=== PATIENT | male | born 1980 | race African-American/Black ===

== ENCOUNTER 2017-12-09 12:16 | Inpatient (IN) | payer OTHER ==
[2017-12-09 15:26] VITALS: BMI 25.7
--- NOTE | 2017-12-09 17:12 | HP ---
CIWA Score - CIWA Score Nausea/Vomitin-Int. Nausea w/Dry Heave Muscle Tremors: 4-Moderate,w/Arms Extend Anxiety: 1-Mildly Anxious Agitation: 1-Slight > Activity Paroxysmal Sweats: 1-Minimal Palms Moist Orientation: 0-Oriented Tacttile Disturbances: 0-None Auditory Disturbances: 0-None Visual Disturbances: 0-None Headache: 2-Mild CIWA-Ar Total Score: 13 Admission ROS BHS - HPI Chief Complaint: Here for alcohol withdrawal. Allergies/Adverse Reactions: Allergies Allergy/AdvReac Type Severity Reaction Status Date / Time No Known Drug Allergies Allergy Verified 12/09/17 18:20 dust Allergy Intermediate Uncoded 12/09/17 17:35 History of Present Illness: States has been drinking since age Seen in [facility] 11/14 for depression. Denies thoughts of harming self or others. Denies hx seizures or blackouts. Denies any significant length of sobriety. Denies current medications. Exam Limitations: No Limitations - Ebola screening Have you traveled outside of the country in the last 21 days: No Have you had contact with anyone from an Ebola affected area: No Have you been sick,other than usual withdrawal symptoms: No Do you have a fever: No - Review of Systems Constitutional: Chills EENT: reports: No Symptoms Reported Respiratory: reports: No Symptoms reported Cardiac: reports: No Symptoms Reported GI: reports: Vomiting (Denies abd pain) : reports: No Symptoms Reported Musculoskeletal: reports: No Symptoms Reported Integumentary: reports: No Symptoms Reported Neuro: reports: Headache, Tremors Endocrine: reports: No Symptoms Reported Hematology: reports: No Symptoms Reported Psychiatric: reports: Judgement Intact, Orientated x3, Depressed (Denies thoughts of harming self or others) Patient History - Patient Medical History Hx Anemia: No Hx Asthma: No Hx Chronic Obstructive Pulmonary Disease (COPD): No Hx Cancer: No Hx Cardiac Disorders: No Hx Congestive Heart Failure: No Hx Hypertension: No Hx Hypercholesterolemia: No Hx Pacemaker: No HX Cerebrovascular Accident: No Hx Seizures: No Hx Dementia: No Hx Diabetes: No Hx Gastrointestinal Disorders: No Hx Liver Disease: No Hx Genitourinary Disorders: No Hx Sexually Transmitted Disorders: No Hx Renal Disease (ESRD): No Hx Thyroid Disease: No Hx Human Immunodeficiency Virus (HIV): No (2017) Hx Hepatitis C: No Hx Depression: Yes Hx Suicide Attempt: Yes - Patient Surgical History Past Surgical History: No - PPD History Previous Implant?: Yes Documented Results: Negative w/o proof Implanted On Prior R Admission?: No PPD to be Administered?: Yes - Smoking Cessation Smoking history: Current every day smoker Have you smoked in the past 12 months: Yes Aproximately how many cigarettes per day: 20 Hx Chewing Tobacco Use: No Initiated information on smoking cessation: Yes 'Breaking Loose' booklet given: 12/09/17 - Substance & Tx. History Hx Alcohol Use: Yes Hx Substance Use: Yes Substance Use Type: Alcohol, Marijuana - Substances Abused Alcohol Age of first use: 21 Marijuana/Hashish Age of first use: 21 Admission Physical Exam BHS - Vital Signs Vital Signs: Vital Signs - 24 hr 12/09/17 15:22 Temperature 96.2 F L Pulse Rate 95 H Respiratory 20 Rate Blood Pressure 135/81 - Physical General Appearance: Yes: Mild Distress, Tremorous, Sweating, Anxious HEENTM: Yes: EOMI, Hearing grossly Normal, Normal Voice, SHABNAM Respiratory: Yes: Chest Non-Tender, Lungs Clear, Normal Breath Sounds, No Respiratory Distress Neck: Yes: No masses,lesions,Nodules, Supple Breast: Yes: Breast Exam Deferred Cardiology: Yes: Regular Rhythm, Regular Rate, S1, S2, Murmur (No SOB/Edema) Abdominal: Yes: Non Tender, Flat, Soft, Increased Bowel Sounds Genitourinary: Yes: Within Normal Limits Back: Yes: Normal Inspection Musculoskeletal: Yes: full range of Motion Extremities: Yes: Normal Capillary Refill, Normal Range of Motion, Tremors (Of hand ast rest and increases upon arm elevation) Neurological: Yes: project developer II-XII NML intact, Fully Oriented, Alert, Motor Strength 5/5, Normal Mood/Affect Integumentary: Yes: Normal Color, Dry, Warm, Other (multiple scattered elevated lesions w/ black spots on chest and back. Without erythema or pustules. Non- tender.) Lymphatic: Yes: Within Normal Limits - Diagnostic (1) Alcohol dependence with uncomplicated withdrawal Status: Acute (2) Murmur, cardiac Status: Chronic (3) Blackhead Status: Chronic (4) Cannabis dependence, uncomplicated Status: Chronic (5) Nicotine dependence Status: Acute Qualifiers: Nicotine product type: cigarettes Substance use status: uncomplicated Qualified Code(s): F17.210 - Nicotine dependence, cigarettes, uncomplicated Cleared for Admission [facility] - Detox or Rehab [facility] Level of Care: Medically Managed Detox Regimen/Protocol: Librium [facility] Breath Alcohol Content Breath Alcohol Content: 0 Urine Drug Screen - Results Drug Screen Negative: No Urine Drug Screen Results: THC-Marijuana, BZO-Benzodiazepines
[2017-12-09] MEDS ORDERED: IBUPROFEN 400 MG TABLET (FP) PO PRN (17:36)
[2017-12-09] MEDS ORDERED: MAGNESIUM HYDROX 2400MG/30ML ORAL SUSPENSION 30 ML CUP PO PRN (17:36)
[2017-12-09] MEDS ORDERED: MENTHOL/PHENOL 1 EACH UD MM PRN (17:36)
[2017-12-09] MEDS ORDERED: P-EPHED 60MG/TRIPROLIDI 2.5MG TABLET PO PRN (17:36)
[2017-12-09] MEDS ORDERED: MAGNESIUM CITRATE 300 ML BOTTLE PO PRN (17:36)
[2017-12-09] MEDS ORDERED: guaiFENesin/D-METHORPHAN HB 10 ML UNIT-DOSE CUPS PO PRN (17:36)
[2017-12-09] MEDS ORDERED: chlordiazePOXIDE HCL 25 MG CAPSULE PO ONE (17:36)
[2017-12-09] MEDS ORDERED: chlordiazePOXIDE HCL 25 MG CAPSULE PO PRN (17:36)
[2017-12-09] MEDS ORDERED: MAG HYDROX/AL HYDROX/SIMETH 30 ML UNIT-DOSE CUP PO PRN (17:36)
[2017-12-09] MEDS ORDERED: LOPERAMIDE HCL 2 MG CAPSULE PO PRN (17:36)
[2017-12-09] MEDS ORDERED: ACETAMINOPHEN 325 MG TABLET (FP) PO PRN (17:36)
[2017-12-09] MEDS ORDERED: NICOTINE POLACRILEX 2 MG GUM BC PRN (17:36)
[2017-12-09] MEDS: THIAMINE HCL 100 MG TABLET (FP) PO SCH (22:14)
[2017-12-09] MEDS: chlordiazePOXIDE HCL 25 MG CAPSULE PO SCH (22:14)
[2017-12-09] MEDS: MELATONIN 5 MG TABLETS PO PRN (22:14)
[2017-12-10] MEDS: chlordiazePOXIDE HCL 25 MG CAPSULE PO SCH ×4 (05:33→22:31)
[2017-12-10 10:25] LABS: HEMATOCRIT 42.5 % (35.4-49); HEMOGLOBIN 13.6 GM/dL (11.7-16.9); MCH 27.8 pg (25.7-33.7); MEAN CELL VOLUME 87.1 fl (80-96); MEAN PLT VOLUME 8.7 fl (7.5-11.1); PLATELET COUNT 312 K/MM3 (134-434); RBC 4.88 M/mm3 (4.00-5.60); RDW 14.4 % (11.9-15.9); WHITE BLOOD COUNT 7.2 K/mm3 (4.0-10.0)
[2017-12-10] MEDS: PRENATAL VITAMINS W/ FOLIC ACID TABLET (FP) PO SCH (10:27)
[2017-12-10] MEDS: NICOTINE 21 MG/24 HOURS TOPICAL PATCH TD SCH (10:28)
[2017-12-10 10:45] LABS: ALBUMIN 3.6 g/dl (3.4-5.0); ALK PHOS 58 U/L (45-117); ANION GAP 9 MMOL/L (8-16); BILIRUBIN,TOTAL 0.4 mg/dL (0.2-1); BLOOD UREA NITROGEN 15 mg/dL (7-18); CHLORIDE 106 mmol/L (98-107); CO2 29 mmol/L (21-32); CREATININE 0.9 mg/dL (0.55-1.3); GLUCOSE,RANDOM 78 mg/dL (74-106); POTASSIUM 4.2 mmol/L (3.5-5.1); SGOT/AST 28 U/L (15-37); SGPT/ALT 73 U/L (13-61); SODIUM 144 mmol/L (136-145); TOT PROT 6.2 g/dl (6.4-8.2)
--- NOTE | 2017-12-10 11:44 | CONSULT ---
[facility] Psychiatric Consult - Data Date of interview: 12/10/17 Admission source: [facility] Identifying data: Patient is a 37 year old single male, father of one, unemployed, homeless, and is supported by [facility]. This is patient's first admission to detox at [facility]. Patient admitted to for alcohol dependence. Substance Abuse History: Smoking Cessation. Smoking history: Current every day smoker. Have you smoked in the past 12 months: Yes. Aproximately how many cigarettes per day: 20. Hx Chewing Tobacco Use: No. Initiated information on smoking cessation: Yes. 'Breaking Loose' booklet given: 12/09/17. - Substance & Tx. History. Hx Alcohol Use: Yes. Hx Substance Use: Yes. Substance Use Type : Alcohol, Marijuana Medical History: denies. Psychiatric History: Patient is a poor historian. He is unable to provide a clear psychiatric history. He reports two psychiatric hospitalizations at [facility] in 2018. He denies outpatient psychiatric care. He is unsure of the medications he is prescribed and is unable to tell rfp writer when he last accepted medications. Director [facility] able to review pharmacy claims with patient and discuss his most recent prescriptions of risperdal, cogentin, and trazodone but patient contines to provide a poor psychiatric history. He did report h/o auditory and visual hallucinations but denies psychotic sympyoms at the moment. Patient appears to be mildly internally preoccupied. Patient agreeable to accepting psychotrophic medications. Physical/Sexual Abuse/Trauma History: denies. Mental Status Exam - Mental Status Exam Alert and Oriented to: Time, Place, Person Cognitive Function: Fair Patient Appearance: Unkempt Mood: Withdrawn, Euthymic Affect: Flat Patient Behavior: Guarded, Cooperative Speech Pattern: Delayed Voice Loudness: Moderately Soft/Quiet Thought Process: Thought Blocking Thought Disorder: Not Present Hallucinations: Denies Suicidal Ideation: Denies Homicidal Ideation: Denies Insight/Judgement: Poor Sleep: Poorly Appetite: Fair Muscle strength/Tone: Normal Gait/Station: Normal Psychiatric Findings - Problem List (Boomer 1, 2,3) (1) Schizophrenia Current Visit: Yes Status: Suspected (2) Alcohol dependence with uncomplicated withdrawal Current Visit: Yes Status: Acute (3) Cannabis dependence, uncomplicated Current Visit: Yes Status: Acute (4) Substance induced mood disorder Current Visit: Yes Status: Acute - Initial Treatment Plan Initial Treatment Plan: Psychoeducation provided. Detoxification in progress. Pharmacy claims reviewed and noted electronic prescriptions for risperdal 2mg BID (12/08/17) Trazodone 100mg ( 12/05/17) and Congentin 1mg BID (12/05/17) Will order risperdal 1mg BID + cogentin 0.5mg + Trazodone 100mg qhs. Benefits and side effects discussed. Verbal consent given.
[2017-12-10 12:59] LABS: URINE APPEARANCE CLOUDY; URINE BILIRUBIN NEGATIVE (<2.0 mg/dL); URINE COLOR YELLOW; URINE GLUCOSE (UA) NEGATIVE (NEGATIVE); URINE KETONE NEGATIVE (NEGATIVE); URINE LEUK ESTERASE NEGATIVE (NEGATIVE); URINE NITRITE NEGATIVE (NEGATIVE); URINE PROTEIN 1+ (NEGATIVE); URINE UROBILINOGEN NEGATIVE mg/dL (0.2-1.0)
[2017-12-10 13:16] LABS: EPI CELLS RARE /HPF (FEW); URINE BACTERIA MANY /hpf (NONE SEEN); YEAST FEW
[2017-12-10] MEDS: risperiDONE 1 MG TABLET (FP) PO SCH ×2 (13:24→22:31)
[2017-12-10] MEDS: BENZTROPINE MESYLATE 1 MG TABLET (FP) PO SCH ×2 (13:25→22:31)
--- NOTE | 2017-12-10 14:46 | EKG ---
Test Reason : Blood Pressure : / mmHG Vent. Rate : 075 BPM Atrial Rate : 075 BPM P-R Int : 158 ms QRS Dur : 090 ms QT Int : 400 ms P-R-T Axes : 056 070 054 degrees QTc Int : 446 ms NORMAL SINUS RHYTHM NORMAL ECG NO PREVIOUS ECGS AVAILABLE Confirmed by MD Maritza, Bautista ([id number]) on 12/10/2017 2:46:13 PM Referred By: Confirmed By:Bautista Salas MD
--- NOTE | 2017-12-10 15:44 | PN ---
[facility] CIWA - CIWA Score Nausea/Vomitin Muscle Tremors: 2 Anxiety: 3 Agitation: 3 Paroxysmal Sweats: 2 Orientation: 0-Oriented Tacttile Disturbances: 0-None Auditory Disturbances: 0-None Visual Disturbances: 0-None Headache: 0-None Present CIWA-Ar Total Score: 12 S Progress Note (SOAP) Subjective: c/o nausea, diarrhea, anxious, interrupted sleep Objective: 12/10/17 15:45 Vital Signs Temperature 96.3 F L 12/10/17 13:58 Pulse Rate 88 12/10/17 13:58 Respiratory Rate 18 12/10/17 13:58 Blood Pressure 112/76 12/10/17 13:58 O2 Sat by Pulse Oximetry (%) Laboratory Last Values WBC 7.2 K/mm3 (4.0-10.0) 12/10/17 08:00 RBC 4.88 M/mm3 (4.00-5.60) 12/10/17 08:00 Hgb 13.6 GM/dL (11.7-16.9) 12/10/17 08:00 Hct 42.5 % (35.4-49) 12/10/17 08:00 MCV 87.1 fl (80-96) 12/10/17 08:00 MCH 27.8 pg (25.7-33.7) 12/10/17 08:00 MCHC 32.0 g/dl (32.0-35.9) 12/10/17 08:00 RDW 14.4 % (11.9-15.9) 12/10/17 08:00 Plt Count 312 K/MM3 (134-434) 12/10/17 08:00 MPV 8.7 fl (7.5-11.1) 12/10/17 08:00 Sodium 144 mmol/L (136-145) 12/10/17 08:00 Potassium 4.2 mmol/L (3.5-5.1) 12/10/17 08:00 Chloride 106 mmol/L (98-107) 12/10/17 08:00 Carbon Dioxide 29 mmol/L (21-32) 12/10/17 08:00 Anion Gap 9 MMOL/L (8-16) 12/10/17 08:00 BUN 15 mg/dL (7-18) 12/10/17 08:00 Creatinine 0.9 mg/dL (0.55-1.3) 12/10/17 08:00 Creat Clearance w eGFR > 60 (>60) 12/10/17 08:00 Random Glucose 78 mg/dL (74-106) 12/10/17 08:00 Calcium 9.0 mg/dL (8.5-10.1) 12/10/17 08:00 Total Bilirubin 0.4 mg/dL (0.2-1) 12/10/17 08:00 AST 28 U/L (15-37) 12/10/17 08:00 ALT 73 U/L (13-61) H 12/10/17 08:00 Alkaline Phosphatase 58 U/L (45-117) 12/10/17 08:00 Total Protein 6.2 g/dl (6.4-8.2) L 12/10/17 08:00 Albumin 3.6 g/dl (3.4-5.0) 12/10/17 08:00 Urine Color Yellow 12/10/17 09:30 Urine Appearance Cloudy 12/10/17 09:30 Urine pH 8.0 (5.0-8.0) 12/10/17 09:30 Ur Specific [place] 1.024 (1.010-1.035) 12/10/17 09:30 Urine Protein 1+ (NEGATIVE) H 12/10/17 09:30 Urine Glucose (UA) Negative (NEGATIVE) 12/10/17 09:30 Urine Ketones Negative (NEGATIVE) 12/10/17 09:30 Urine Blood Negative (NEGATIVE) 12/10/17 09:30 Urine Nitrite Negative (NEGATIVE) 12/10/17 09:30 Urine Bilirubin Negative (<2.0 mg/dL) 12/10/17 09:30 Urine Urobilinogen Negative mg/dL (0.2-1.0) 12/10/17 09:30 Ur Leukocyte Esterase Negative (NEGATIVE) 12/10/17 09:30 Urine WBC (Auto) 10 /hpf (3-5) 12/10/17 09:30 Urine RBC (Auto) <1 /hpf (0-3) 12/10/17 09:30 Ur Epithelial Cells Rare /HPF (FEW) 12/10/17 09:30 Urine Bacteria Many /hpf (NONE SEEN) 12/10/17 09:30 Urine Yeast Few 12/10/17 09:30 RPR Titer Nonreactive (NONREACTIVE) 12/10/17 08:00 HIV 1&2 Antibody Screen Negative 12/10/17 08:00 HIV P24 Antigen Negative 12/10/17 08:00 Aox3 no distress, anxious full ROM ambulating in the unit Assessment: 12/10/17 15:46 withdrawal sx Plan: increase PO fluids continue detox continue to monitor
[2017-12-10] MEDS: THIAMINE HCL 100 MG TABLET (FP) PO SCH (22:31)
[2017-12-10] MEDS: traZODone HCL 100 MG TABLET (FP) PO SCH (22:31)
[2017-12-11] MEDS: MELATONIN 5 MG TABLETS PO PRN ×2 (00:38→22:41)
[2017-12-11] MEDS: chlordiazePOXIDE HCL 25 MG CAPSULE PO SCH ×3 (05:49→17:42)
[2017-12-11] MEDS: BENZTROPINE MESYLATE 1 MG TABLET (FP) PO SCH ×2 (10:27→22:28)
[2017-12-11] MEDS: risperiDONE 1 MG TABLET (FP) PO SCH ×2 (10:27→22:28)
[2017-12-11] MEDS: NICOTINE 21 MG/24 HOURS TOPICAL PATCH TD SCH (10:27)
[2017-12-11] MEDS: PRENATAL VITAMINS W/ FOLIC ACID TABLET (FP) PO SCH (10:27)
[2017-12-11] MEDS ORDERED: FLUCONAZOLE 50 MG TABLET PO ONE (15:08)
--- NOTE | 2017-12-11 15:08 | PN ---
[facility] CIWA - CIWA Score Nausea/Vomitin-Mild Nausea/No Vomiting Muscle Tremors: 3 Anxiety: 3 Agitation: 3 Paroxysmal Sweats: 3 Orientation: 0-Oriented Tacttile Disturbances: 0-None Auditory Disturbances: 0-None Visual Disturbances: 0-None Headache: 1-Very Mild CIWA-Ar Total Score: 14 [facility] Progress Note (SOAP) Subjective: Sweating, interrupted sleep, anxious Objective: 12/11/17 15:04 Last Vital Signs Temp Pulse Resp BP Pulse Ox 97.5 F L 117 H 19 116/79 12/11/17 14:09 12/11/17 14:09 12/11/17 14:09 12/11/17 14:09 Laboratory Tests 12/10/17 12/10/17 12/10/17 08:00 08:00 08:00 WBC 7.2 RBC 4.88 Hgb 13.6 Hct 42.5 MCV 87.1 MCH 27.8 MCHC 32.0 RDW 14.4 Plt Count 312 MPV 8.7 Sodium 144 Potassium 4.2 Chloride 106 Carbon Dioxide 29 Anion Gap 9 BUN 15 Creatinine 0.9 Creat Clearance w eGFR > 60 Random Glucose 78 Calcium 9.0 Total Bilirubin 0.4 AST 28 ALT 73 H Alkaline Phosphatase 58 Total Protein 6.2 L Albumin 3.6 Urine Color Urine Appearance Urine pH Ur Specific [place] Urine Protein Urine Glucose (UA) Urine Ketones Urine Blood Urine Nitrite Urine Bilirubin Urine Urobilinogen Ur Leukocyte Esterase Urine WBC (Auto) Urine RBC (Auto) Ur Epithelial Cells Urine Bacteria Urine Yeast RPR Titer Nonreactive HIV 1&2 Antibody Screen HIV P24 Antigen 12/10/17 12/10/17 08:00 09:30 WBC RBC Hgb Hct MCV MCH MCHC RDW Plt Count MPV Sodium Potassium Chloride Carbon Dioxide Anion Gap BUN Creatinine Creat Clearance w eGFR Random Glucose Calcium Total Bilirubin AST ALT Alkaline Phosphatase Total Protein Albumin Urine Color Yellow Urine Appearance Cloudy Urine pH 8.0 Ur Specific [place] 1.024 Urine Protein 1+ H Urine Glucose (UA) Negative Urine Ketones Negative Urine Blood Negative Urine Nitrite Negative Urine Bilirubin Negative Urine Urobilinogen Negative Ur Leukocyte Esterase Negative Urine WBC (Auto) 10 Urine RBC (Auto) <1 Ur Epithelial Cells Rare Urine Bacteria Many Urine Yeast Few RPR Titer HIV 1&2 Antibody Screen Negative HIV P24 Antigen Negative Labs reviewed: abnormal UA and yeast Assessment: 12/11/17 15:06 Withdrawal symptoms Noted with abnormal UA and yeast Plan: Continue detox Abnormal UA/Yeast: encouraged PO water intake, diflucan 150mg PO x 1 dose, repeat UA
[2017-12-11] MEDS ORDERED: FLUCONAZOLE 150 MG TABLET PO ONE (16:30)
[2017-12-11] MEDS: THIAMINE HCL 100 MG TABLET (FP) PO SCH (22:28)
[2017-12-11] MEDS: chlordiazePOXIDE 5 MG CAPSULE PO SCH (22:28)
[2017-12-11] MEDS: traZODone HCL 100 MG TABLET (FP) PO SCH (22:28)
[2017-12-12] MEDS: chlordiazePOXIDE 5 MG CAPSULE PO SCH ×2 (05:43→10:44)
[2017-12-12 06:15] VITALS: PULSE 77
[2017-12-12 09:20] VITALS: BP 118/67; TEMP 97.2
[2017-12-12] MEDS: PRENATAL VITAMINS W/ FOLIC ACID TABLET (FP) PO SCH (10:44)
[2017-12-12] MEDS: BENZTROPINE MESYLATE 1 MG TABLET (FP) PO SCH (10:44)
[2017-12-12] MEDS: risperiDONE 1 MG TABLET (FP) PO SCH (10:44)
[2017-12-12] MEDS: NICOTINE 21 MG/24 HOURS TOPICAL PATCH TD SCH (10:45)
--- NOTE | 2017-12-12 12:31 | PN ---
BHS Progress Note (SOAP) Subjective: Offers no complaints Objective: 12/12/17 14:16 Sleeping, breathing unlabored Not wanting to talk with provider Vital Signs Temperature 97.2 F L 12/12/17 09:19 Pulse Rate 77 12/12/17 09:19 Respiratory Rate 18 12/12/17 09:19 Blood Pressure 118/67 12/12/17 09:19 O2 Sat by Pulse Oximetry (%) Assessment: 12/12/17 14:17 Continue detox
--- NOTE | 2017-12-12 14:21 | DS ---
[facility] Detox Discharge Summary Admission Date: 12/09/17 Discharge Date: 12/12/17 - History Additional Comments: Requesting to leave after a.m rounds, offers no excuse Not receptive to education to stay to complete detox. Not in acute distress pt will leave AMA - Physical Exam Results Vital Signs: Vital Signs Temperature 97.2 F L 12/12/17 09:19 Pulse Rate 77 12/12/17 09:19 Respiratory Rate 18 12/12/17 09:19 Blood Pressure 118/67 12/12/17 09:19 O2 Sat by Pulse Oximetry (%) Pertinent Admission Physical Exam Findings: withdrawal sx - Medication Discharge Medications: Ambulatory Orders Benztropine Mesylate [Cogentin -] 0.5 mg PO BID 12/10/17 Risperidone [Risperdal] 1 mg PO BID 12/10/17 traZODone HCL [Trazodone HCl] 100 mg PO HS 12/10/17 - Diagnosis (1) Abnormal finding on urinalysis Status: Acute (2) Alcohol dependence with uncomplicated withdrawal Status: Acute (3) Cannabis dependence, uncomplicated Status: Acute (4) Murmur, cardiac Status: Acute (5) Substance induced mood disorder Status: Acute (6) Cocaine dependence Status: Chronic (7) Depression Status: Chronic (8) Nicotine dependence Status: Chronic - AMA Did Patient Leave Against Medical Advice: Yes
[2017-12-12 14:33] LABS: URINE APPEARANCE CLEAR; URINE BILIRUBIN NEGATIVE (<2.0 mg/dL); URINE COLOR LTYELLOW; URINE GLUCOSE (UA) NEGATIVE (NEGATIVE); URINE KETONE NEGATIVE (NEGATIVE); URINE LEUK ESTERASE TRACE (NEGATIVE); URINE NITRITE NEGATIVE (NEGATIVE); URINE PROTEIN NEGATIVE (NEGATIVE); URINE UROBILINOGEN NEGATIVE mg/dL (0.2-1.0)
[2017-12-12] MEDS ORDERED: chlordiazePOXIDE HCL 10 MG CAPSULE PO SCH (23:00)
== END 2017-12-12 12:29 | disposition left against medical advice (07) | DRG 770 ==
LOC: YASAS 12:16 → Y3N 18:44
PROC: HZ2ZZZZ Detoxification Services for Substance Abuse Treatment (ICD-10-PCS; principal; 2017-12-09)
DX: F10.230 Alcohol dependence with withdrawal, uncomplicated (principal); F14.20 Cocaine dependence, uncomplicated; F12.20 Cannabis dependence, uncomplicated; F17.210 Nicotine dependence, cigarettes, uncomplicated; F19.24 Other psychoactive substance dependence with psychoactive substance-induced mood disorder; F32.9 Major depressive disorder, single episode, unspecified; R01.1 Cardiac murmur, unspecified; B37.49 Other urogenital candidiasis
CPT/HCPCS: 36415; 80053; 81003; 81015; 85027; 86593; 87389; 93005; 93010; J2794

== ENCOUNTER 2018-05-29 18:48 | Inpatient (IN) | payer OTHER ==
[2018-05-29 19:38] VITALS: BMI 29.7
--- NOTE | 2018-05-29 21:10 | HP ---
CIWA Score Nausea/Vomitin-No Nausea/No Vomiting Muscle Tremors: None Anxiety: 2 Agitation: 0-Normal Activity Paroxysmal Sweats: 2 Orientation: 2-Disoriented Date<2 days Tacttile Disturbances: 2-Mild Itch/Numbness/Burn Auditory Disturbances: 0-None Visual Disturbances: 0-None Headache: 4-Moderately Severe (9/10) CIWA-Ar Total Score: 12 - Admission Criteria [facility] Guidelines: Admission for Medically Managed Detox: Requires at least one of the followin. CIWA greater than 12 2. Seizures within the past 24 hours 3. Delirium tremens within the past 24 hours 4. Hallucinations within the past 24 hours 5. Acute intervention needed for co occurring medical disorder 6. Acute intervention needed for co occurring psychiatric disorder 7. Severe withdrawal that cannot be handled at a lower level of care (continued vomiting, continued diarrhea, abnormal vital signs) requiring intravenous medication and/or fluids 8. Patient presents the following: CIWA greater than 12 Admission Criteria Met: Admission criteria met Admission ROS [facility] Chief Complaint: alcohol detox Allergies/Adverse Reactions: Allergies Allergy/AdvReac Type Severity Reaction Status Date / Time No Known Drug Allergies Allergy Verified 05/29/18 19:29 dust Allergy Intermediate Uncoded 05/29/18 19:29 History of Present Illness: 38 yo male with nicotine, alcohol and marijuana dependence is here seeking detox , patient is known to the program. Reports last detox one month ago at [facility]. Utox positive for THC and Bzo, denies BZO use or recent ED visit or hospitalizations. Denies medical problems. Depression and anxiety, on lexapro and rispadol, non compliant with treatment. Denies SI/HI. Denies hx of seizures. Reports ETOH blackouts. Denies hx of falls. Exam Limitations: No Limitations - Ebola screening Have you traveled outside of the country in the last 21 days: No (N) Have you had contact with anyone from an Ebola affected area: No Do you have a fever: No - Review of Systems Constitutional: Other (fatigue) EENT: reports: Nose Congestion Respiratory: reports: No Symptoms reported Cardiac: reports: No Symptoms Reported GI: reports: Poor Fluid Intake, Indigestion : reports: No Symptoms Reported Musculoskeletal: reports: Joint Pain (right shoulder x 3 months, denies injury) Integumentary: reports: Dryness Neuro: reports: Headache Endocrine: reports: No Symptoms Reported Hematology: reports: No Symptoms Reported Psychiatric: reports: Orientated x3, Anxious Other Systems: Reviewed and Negative Patient History - Patient Medical History Hx Anemia: No Hx Asthma: No Hx Chronic Obstructive Pulmonary Disease (COPD): No Hx Cancer: No Hx Cardiac Disorders: No Hx Congestive Heart Failure: No Hx Hypertension: No Hx Hypercholesterolemia: No Hx Pacemaker: No HX Cerebrovascular Accident: No Hx Seizures: No Hx Dementia: No Hx Diabetes: No Hx Gastrointestinal Disorders: No Hx Liver Disease: No Hx Genitourinary Disorders: No Hx Sexually Transmitted Disorders: No Hx Renal Disease (ESRD): No Hx Thyroid Disease: No Hx Human Immunodeficiency Virus (HIV): No (2018) Hx Hepatitis C: No Hx Depression: Yes Hx Suicide Attempt: Yes Hx Schizophrenia: No - Patient Surgical History Past Surgical History: No Hx Neurologic Surgery: No Hx Cataract Extraction: No Hx Cardiac Surgery: No Hx Lung Surgery: No Hx Breast Surgery: No Hx Breast Biopsy: No Hx Abdominal Surgery: No Hx Appendectomy: No Hx Cholecystectomy: No Hx Genitourinary Surgery: No Hx Section: No Hx Orthopedic Surgery: No Anesthesia Reaction: No - PPD History Previous Implant?: No Documented Results: Negative w/proof Date: 12/11/17 PPD to be Administered?: No - Smoking Cessation Smoking history: Current every day smoker Have you smoked in the past 12 months: Yes Aproximately how many cigarettes per day: 20 Hx Chewing Tobacco Use: No Initiated information on smoking cessation: Yes 'Breaking Loose' booklet given: 05/29/18 - Substance & Tx. History Hx Alcohol Use: Yes Hx Substance Use: Yes Substance Use Type: Alcohol, Marijuana Hx Substance Use Treatment: Yes (last detox one month ago at [facility].) - Substances abused Alcohol Substance route: Oral Frequency: Daily Amount used: 1 PINT [place]ODKA Age of first use: 21 Date of last use: 05/29/18 Marijuana/Hashish Substance route: Smoking Frequency: Daily Amount used: 2 BAGS Age of first use: 21 Date of last use: 05/29/18 Family Disease History - Family Disease History Family Disease History: Other: Mother (THC) Admission Physical Exam BHS - Vital Signs Vital Signs: Vital Signs - 24 hr 05/29/18 19:31 Temperature 98.1 F Pulse Rate 87 Respiratory 16 Rate Blood Pressure 113/75 - Physical General Appearance: Yes: Nourished, Disheveled, Sweating, Anxious HEENTM: Yes: EOMI, Hearing grossly Normal, Normal ENT Inspection, Normocephalic , Normal Voice, SHABNAM, Pharynx Normal, Tm's normal, Other (cheilitis) Respiratory: Yes: Chest Non-Tender, Lungs Clear, Normal Breath Sounds, No Respiratory Distress, No Accessory Muscle Use Neck: Yes: Within Normal Limits Breast: Yes: Breast Exam Deferred Cardiology: Yes: Regular Rhythm, Regular Rate, Murmur Abdominal: Yes: Normal Bowel Sounds, Non Tender, Flat, Soft Genitourinary: Yes: Within Normal Limits Back: Yes: Normal Inspection Musculoskeletal: Yes: full range of Motion, Gait Steady, Pelvis Stable Extremities: Yes: Normal Capillary Refill, Normal Inspection, Normal Range of Motion, Non-Tender Neurological: Yes: wire drawing machine tender II-XII NML intact, Fully Oriented, Alert, Motor Strength 5/5, Other (flat affect) Integumentary: Yes: Normal Color, Warm, Diaphoresis Lymphatic: Yes: Within Normal Limits - Diagnostic (1) Alcohol dependence with uncomplicated withdrawal Current Visit: Yes Status: Acute (2) Nicotine dependence Current Visit: Yes Status: Acute Qualifiers: Nicotine product type: cigarettes Substance use status: uncomplicated Qualified Code(s): F17.210 - Nicotine dependence, cigarettes, uncomplicated (3) Cannabis dependence, uncomplicated Current Visit: Yes Status: Chronic (4) Murmur, cardiac Current Visit: Yes Status: Chronic (5) Nicotine dependence Current Visit: Yes Status: Chronic Qualifiers: Nicotine product type: cigarettes Cleared for Admission S - Detox or Rehab [facility] Level of Care: Medically Managed Detox Regimen/Protocol: Librium Breathalyzer - Breathalyzer Breathalyzer: 0 Urine Drug Screen - Test Device Lot number: [id number] Expiration date: 01/14/20 - Control Is test valid?: Yes - Results Drug screen NEGATIVE: No Urine drug screen results: THC-Marijuana, BZO-Benzodiazepines Inpatient Rehab Admission - Rehab Decision to Admit Inpatient rehab admission?: No
[2018-05-29] MEDS ORDERED: MAG HYDROX/AL HYDROX/SIMETH 30 ML UNIT-DOSE CUP PO PRN (21:14)
[2018-05-29] MEDS ORDERED: MELATONIN 5 MG TABLETS PO PRN (21:14)
[2018-05-29] MEDS ORDERED: ACETAMINOPHEN 325 MG TABLET (FP) PO PRN ×2 (21:14)
[2018-05-29] MEDS ORDERED: hydrOXYzine PAMOATE 25 MG CAPSULE (FP) PO PRN (21:14)
[2018-05-29] MEDS ORDERED: chlordiazePOXIDE HCL 10 MG CAPSULE PO PRN (21:14)
[2018-05-29] MEDS ORDERED: MAGNESIUM CITRATE 300 ML BOTTLE PO PRN (21:14)
[2018-05-29] MEDS ORDERED: MAGNESIUM HYDROX 2400MG/30ML ORAL SUSPENSION 30 ML CUP PO PRN (21:14)
[2018-05-29] MEDS ORDERED: NICOTINE POLACRILEX 2 MG GUM BUC PRN (21:14)
[2018-05-29] MEDS ORDERED: BISMUTH SUBSALICYLATE 524 MG/30 ML UD PO PRN (21:14)
[2018-05-29] MEDS ORDERED: MENTHOL/PHENOL 1 EACH UD MM PRN (21:14)
[2018-05-29] MEDS: chlordiazePOXIDE HCL 25 MG CAPSULE PO SCH (22:32)
[2018-05-29] MEDS: METHOCARBAMOL 500 MG TABLET PO PRN (22:32)
[2018-05-29] MEDS: THIAMINE HCL 100 MG TABLET (FP) PO SCH (22:34)
[2018-05-30] MEDS: chlordiazePOXIDE HCL 25 MG CAPSULE PO SCH ×2 (05:37→14:24)
--- NOTE | 2018-05-30 09:31 | PN ---
S CIWA - CIWA Score Nausea/Vomitin-Mild Nausea/No Vomiting Muscle Tremors: 4-Moderate,w/Arms Extend Anxiety: 2 Agitation: 3 Paroxysmal Sweats: 1-Minimal Palms Moist Orientation: 1-Uncertain about Date Tacttile Disturbances: 0-None Auditory Disturbances: 0-None Visual Disturbances: 0-None Headache: 0-None Present CIWA-Ar Total Score: 12 BHS Progress Note (SOAP) Subjective: feeling ok today doing well with librium detox regimen Objective: 05/30/18 09:31 Vital Signs Temperature 97.7 F 05/30/18 09:21 Pulse Rate 76 05/30/18 09:21 Respiratory Rate 18 05/30/18 09:21 Blood Pressure 109/63 05/30/18 09:21 O2 Sat by Pulse Oximetry (%) 05/30/18 09:32 lab pending Assessment: 05/30/18 09:32 alcohol withdrawal sx Plan: continue detox
[2018-05-30 10:06] LABS: ALBUMIN 3.7 g/dl (3.4-5.0); ALK PHOS 73 U/L (45-117); ANION GAP 6 MMOL/L (8-16); BILIRUBIN,TOTAL 0.2 mg/dL (0.2-1); BLOOD UREA NITROGEN 13 mg/dL (7-18); CALCIUM 9.3 mg/dL (8.5-10.1); CHLORIDE 104 mmol/L (98-107); CO2 29 mmol/L (21-32); CREATININE 0.9 mg/dL (0.55-1.3); GLUCOSE,RANDOM 88 mg/dL (74-106); POTASSIUM 4.3 mmol/L (3.5-5.1); SGOT/AST 30 U/L (15-37); SGPT/ALT 54 U/L (13-61); SODIUM 139 mmol/L (136-145); TOT PROT 6.8 g/dl (6.4-8.2)
[2018-05-30] MEDS: PRENATAL VITAMINS W/ FOLIC ACID TABLET (FP) PO SCH (10:09)
[2018-05-30 10:11] LABS: HEMATOCRIT 42.5 % (35.4-49); HEMOGLOBIN 14.2 GM/dL (11.7-16.9); MCH 27.9 pg (25.7-33.7); MCHC 33.4 g/dl (32.0-35.9); MEAN CELL VOLUME 83.7 fl (80-96); MEAN PLT VOLUME 8.4 fl (7.5-11.1); PLATELET COUNT 296 K/MM3 (134-434); RBC 5.08 M/mm3 (4.00-5.60); RDW 14.2 % (11.9-15.9); WHITE BLOOD COUNT 7.9 K/mm3 (4.0-10.0)
[2018-05-30] MEDS: NICOTINE 14 MG/24 HOURS TOPICAL PATCH TD SCH (10:12)
[2018-05-30 10:21] LABS: URINE APPEARANCE CLEAR; URINE BILIRUBIN NEGATIVE (NEGATIVE); URINE CASTS 46 /lpf (0-8); URINE COLOR YELLOW; URINE GLUCOSE (UA) NEGATIVE (NEGATIVE); URINE KETONE NEGATIVE (NEGATIVE); URINE LEUK ESTERASE 1+ (NEGATIVE); URINE NITRITE NEGATIVE (NEGATIVE); URINE PROTEIN NEGATIVE (NEGATIVE); URINE RBC 2 /hpf (0-4); URINE UROBILINOGEN 0.2 mg/dL (0.2-1.0); URINE WBC 34 /hpf (0-5)
--- NOTE | 2018-05-30 13:07 | CONSULT ---
[facility] Psychiatric Consult - Data Date of interview: 05/30/18 Admission source: [facility] Identifying data: Readmission to [facility] for this 38 y/o AA male self- referredfor detoxification (alcohol, cannabis). Examined at [address] [place] [address]. Patient is single without dependents, homeless, unemployed and supported by [facility] benefits. Substance Abuse History: Confirmed by the patient in this session. Details in current [facility] report : Smoking history: Current every day smoker. Have you smoked in the past 12 months: Yes. Aproximately how many cigarettes per day: 20. Hx Chewing Tobacco Use: No. Initiated information on smoking cessation: Yes. 'Breaking Loose' booklet given: 05/29/18. - Substance & Tx. History. Hx Alcohol Use: Yes. Hx Substance Use: Yes. Substance Use Type: Alcohol, Marijuana. Hx Substance Use Treatment: Yes (last detox one month ago at [facility] - Substances abused. Alcohol. Substance route: Oral. Frequency: Daily. Amount used: 1 [place]. Age of first use: 21. Date of last use: . Marijuana/Hashish. Substance route: Smoking. Frequency: Daily. Amount used: 2 BAGS. Age of first use: 21. Date of last use: 05/29/18 Medical History: Patient endorses good general health. Psychiatric History: In this interview, the patient denies history of psychiatric hospitalizations. Does admit to the diagnoses of MDD and schizophrenia. Mr Rodriguez reports that he is prescribed lexapro + risperdal but he is incapable of providing any information about OPD programs or psychiatrists. Vague and inconsistent historian. Patient declares that he has no affiliation with any mental health clinic. Has not taken medications " for a while ". Denies history of suicide attempts. Physical/Sexual Abuse/Trauma History: No information. Additional Comment: Urine drug screen results: THC-Marijuana, BZO- Benzodiazepines. Noted. Mental Status Exam - Mental Status Exam Alert and Oriented to: Time, Place, Person Patient Appearance: Disheveled Mood: Withdrawn Affect: Mood Congruent, Constricted Patient Behavior: Fatigued, Cooperative Speech Pattern: Clear Voice Loudness: Normal Thought Process: Goal Oriented Thought Disorder: Not Present, Bizarre Hallucinations: Denies Suicidal Ideation: Denies Homicidal Ideation: Denies Insight/Judgement: Poor Sleep: Poorly, Difficulty falling asleep Appetite: Good Muscle strength/Tone: Normal Gait/Station: Normal Psychiatric Findings - Problem List (Ferdinand 1, 2,3) (1) Alcohol dependence with uncomplicated withdrawal Current Visit: Yes Status: Acute (2) Nicotine dependence Current Visit: Yes Status: Chronic Qualifiers: Nicotine product type: cigarettes Substance use status: uncomplicated Qualified Code(s): F17.210 - Nicotine dependence, cigarettes, uncomplicated (3) Cannabis dependence, uncomplicated Current Visit: Yes Status: Chronic (4) Substance induced mood disorder Current Visit: Yes Status: Chronic (5) History of schizophrenia Current Visit: Yes Status: Chronic (6) Non-compliance Current Visit: Yes Status: Chronic (7) Insomnia Current Visit: Yes Status: Chronic - Initial Treatment Plan Initial Treatment Plan: Psychoeducation. Sleep hygiene. Support. Detoxification. Patient requested to resume his medications as follows : risperdal 1 mg po bid + trazodone 50 mg po hs + cogentin 0.5 mg po bid. Side effects/benefits of each drug are discussed with the patient. Made aware of the risk of priapism, sexual impotence, abnormal involuntary movements, dyskinesias , akathisia, neuroleptic malignant syndrome, cardiovascular adverse events and anticholinergic manifestations (constipation, dry mouth, blurred vision, urinary hesitancy). Consent (verbal) granted to . Noted pharmacy claims for risperdal 2 mg/#30/30 days + lexapro 20 mg/#30/30 days at [facility] on 04/21/18. Observation.
[2018-05-30] MEDS: THIAMINE HCL 100 MG TABLET (FP) PO SCH (21:26)
[2018-05-30] MEDS: traZODone HCL 50 MG TABLET (FP) PO SCH (21:26)
[2018-05-30] MEDS: risperiDONE 1 MG TABLET (FP) PO SCH (21:26)
[2018-05-30] MEDS: BENZTROPINE MESYLATE 1 MG TABLET (FP) PO SCH (21:27)
[2018-05-30] MEDS: chlordiazePOXIDE 5 MG CAPSULE PO SCH (21:27)
[2018-05-30] MEDS: IBUPROFEN 400 MG TABLET (FP) PO PRN (22:00)
[2018-05-30] MEDS: METHOCARBAMOL 500 MG TABLET PO PRN (22:01)
[2018-05-31] MEDS: chlordiazePOXIDE 5 MG CAPSULE PO SCH ×2 (05:38→14:00)
[2018-05-31] MEDS: PRENATAL VITAMINS W/ FOLIC ACID TABLET (FP) PO SCH (09:21)
[2018-05-31] MEDS: risperiDONE 1 MG TABLET (FP) PO SCH ×2 (09:21→22:09)
[2018-05-31] MEDS: BENZTROPINE MESYLATE 1 MG TABLET (FP) PO SCH ×2 (09:21→22:11)
[2018-05-31] MEDS: IBUPROFEN 400 MG TABLET (FP) PO PRN ×2 (09:21→17:57)
[2018-05-31] MEDS: NICOTINE 14 MG/24 HOURS TOPICAL PATCH TD SCH (10:18)
--- NOTE | 2018-05-31 14:38 | PN ---
S CIWA - CIWA Score Nausea/Vomitin-Mild Nausea/No Vomiting Muscle Tremors: 2 Anxiety: 1-Mildly Anxious Agitation: 2 Paroxysmal Sweats: 1-Minimal Palms Moist Orientation: 1-Uncertain about Date Tacttile Disturbances: 0-None Auditory Disturbances: 0-None Visual Disturbances: 0-None Headache: 1-Very Mild CIWA-Ar Total Score: 9 S Progress Note (SOAP) Subjective: feeling better want to go to [facility] Objective: 05/31/18 14:39 Vital Signs Temperature 98.0 F 05/31/18 09:21 Pulse Rate 76 05/31/18 13:16 Respiratory Rate 18 05/31/18 13:16 Blood Pressure 136/93 05/31/18 13:16 O2 Sat by Pulse Oximetry (%) Laboratory Last Values WBC 7.9 K/mm3 (4.0-10.0) 05/30/18 07:00 RBC 5.08 M/mm3 (4.00-5.60) 05/30/18 07:00 Hgb 14.2 GM/dL (11.7-16.9) 05/30/18 07:00 Hct 42.5 % (35.4-49) 05/30/18 07:00 MCV 83.7 fl (80-96) 05/30/18 07:00 MCH 27.9 pg (25.7-33.7) 05/30/18 07:00 MCHC 33.4 g/dl (32.0-35.9) 05/30/18 07:00 RDW 14.2 % (11.9-15.9) 05/30/18 07:00 Plt Count 296 K/MM3 (134-434) 05/30/18 07:00 MPV 8.4 fl (7.5-11.1) 05/30/18 07:00 Sodium 139 mmol/L (136-145) 05/30/18 07:00 Potassium 4.3 mmol/L (3.5-5.1) 05/30/18 07:00 Chloride 104 mmol/L (98-107) 05/30/18 07:00 Carbon Dioxide 29 mmol/L (21-32) 05/30/18 07:00 Anion Gap 6 MMOL/L (8-16) L 05/30/18 07:00 BUN 13 mg/dL (7-18) 05/30/18 07:00 Creatinine 0.9 mg/dL (0.55-1.3) 05/30/18 07:00 Creat Clearance w eGFR 95.48 (>60) 05/30/18 07:00 Random Glucose 88 mg/dL (74-106) 05/30/18 07:00 Calcium 9.3 mg/dL (8.5-10.1) 05/30/18 07:00 Total Bilirubin 0.2 mg/dL (0.2-1) 05/30/18 07:00 AST 30 U/L (15-37) 05/30/18 07:00 ALT 54 U/L (13-61) 05/30/18 07:00 Alkaline Phosphatase 73 U/L (45-117) 05/30/18 07:00 Total Protein 6.8 g/dl (6.4-8.2) 05/30/18 07:00 Albumin 3.7 g/dl (3.4-5.0) 05/30/18 07:00 Urine Color Yellow 05/30/18 07:00 Urine Appearance Clear 05/30/18 07:00 Urine pH 5.0 (5.0-8.0) D 05/30/18 07:00 Ur Specific [place] 1.026 (1.010-1.035) 05/30/18 07:00 Urine Protein Negative (NEGATIVE) 05/30/18 07:00 Urine Glucose (UA) Negative (NEGATIVE) 05/30/18 07:00 Urine Ketones Negative (NEGATIVE) 05/30/18 07:00 Urine Blood Negative (NEGATIVE) 05/30/18 07:00 Urine Nitrite Negative (NEGATIVE) 05/30/18 07:00 Urine Bilirubin Negative (NEGATIVE) 05/30/18 07:00 Urine Urobilinogen 0.2 mg/dL (0.2-1.0) 05/30/18 07:00 Ur Leukocyte Esterase 1+ (NEGATIVE) H 05/30/18 07:00 Urine WBC (Auto) 34 /hpf (0-5) 05/30/18 07:00 Urine RBC (Auto) 2 /hpf (0-4) 05/30/18 07:00 Urine Casts (Auto) 46 /lpf (0-8) 05/30/18 07:00 U Epithel Cells (Auto) 9.0 /HPF (0-5/HPF) 05/30/18 07:00 U Sm Round Cell (Auto) None seen 05/30/18 07:00 Urine Bacteria (Auto) 2.0 /hpf (NEGATIVE) 05/30/18 07:00 RPR Titer Nonreactive (NONREACTIVE) 05/30/18 07:00 lab noted uto 05/31/18 14:41 Assessment: 05/31/18 14:42 withrenee sx Plan: continue detox
[2018-05-31] MEDS ORDERED: SULFAMETHOXAZOLE/TRIMETHOPRIM 800MG/160MG D.S. TABLET PO SCH (14:40)
[2018-05-31] MEDS: SULFAMETHOXAZOLE/TRIMETHOPRIM 800MG/160MG D.S. TABLET PO SCH ×2 (15:55→22:09)
[2018-05-31] MEDS: METHOCARBAMOL 500 MG TABLET PO PRN (20:10)
[2018-05-31] MEDS ORDERED: chlordiazePOXIDE HCL 10 MG CAPSULE PO PRN (21:00)
[2018-05-31] MEDS: THIAMINE HCL 100 MG TABLET (FP) PO SCH (22:09)
[2018-05-31] MEDS: traZODone HCL 50 MG TABLET (FP) PO SCH (22:09)
[2018-05-31] MEDS: chlordiazePOXIDE HCL 10 MG CAPSULE PO SCH (22:09)
[2018-06-01] MEDS: chlordiazePOXIDE HCL 10 MG CAPSULE PO SCH (05:40)
[2018-06-01 09:21] VITALS: BP 131/92; PULSE 92; TEMP 96
--- NOTE | 2018-06-01 09:42 | DS ---
[facility] Detox Discharge Summary Admission Date: 05/29/18 Discharge Date: 06/01/18 - History Present History: Alcohol Dependence Additional Comments: 38 years old male admitted on 05/29/18 for alcohol withdrawal stabilization completed detox regimen alert no acute distress aftercare [facility] [place] Past History: bring in medication list and lab report to aftercare appointment patient will bring in medication list to follow up appointment - Physical Exam Results Vital Signs: Vital Signs Temperature 96.0 F L 06/01/18 09:00 Pulse Rate 92 H 06/01/18 09:00 Respiratory Rate 20 06/01/18 09:00 Blood Pressure 131/92 06/01/18 09:00 O2 Sat by Pulse Oximetry (%) Pertinent Admission Physical Exam Findings: alcohol withdrawal sx Laboratory Last Values WBC 7.9 K/mm3 (4.0-10.0) 05/30/18 07:00 RBC 5.08 M/mm3 (4.00-5.60) 05/30/18 07:00 Hgb 14.2 GM/dL (11.7-16.9) 05/30/18 07:00 Hct 42.5 % (35.4-49) 05/30/18 07:00 MCV 83.7 fl (80-96) 05/30/18 07:00 MCH 27.9 pg (25.7-33.7) 05/30/18 07:00 MCHC 33.4 g/dl (32.0-35.9) 05/30/18 07:00 RDW 14.2 % (11.9-15.9) 05/30/18 07:00 Plt Count 296 K/MM3 (134-434) 05/30/18 07:00 MPV 8.4 fl (7.5-11.1) 05/30/18 07:00 Sodium 139 mmol/L (136-145) 05/30/18 07:00 Potassium 4.3 mmol/L (3.5-5.1) 05/30/18 07:00 Chloride 104 mmol/L (98-107) 05/30/18 07:00 Carbon Dioxide 29 mmol/L (21-32) 05/30/18 07:00 Anion Gap 6 MMOL/L (8-16) L 05/30/18 07:00 BUN 13 mg/dL (7-18) 05/30/18 07:00 Creatinine 0.9 mg/dL (0.55-1.3) 05/30/18 07:00 Creat Clearance w eGFR 95.48 (>60) 05/30/18 07:00 Random Glucose 88 mg/dL (74-106) 05/30/18 07:00 Calcium 9.3 mg/dL (8.5-10.1) 05/30/18 07:00 Total Bilirubin 0.2 mg/dL (0.2-1) 05/30/18 07:00 AST 30 U/L (15-37) 05/30/18 07:00 ALT 54 U/L (13-61) 05/30/18 07:00 Alkaline Phosphatase 73 U/L (45-117) 05/30/18 07:00 Total Protein 6.8 g/dl (6.4-8.2) 05/30/18 07:00 Albumin 3.7 g/dl (3.4-5.0) 05/30/18 07:00 Urine Color Yellow 05/30/18 07:00 Urine Appearance Clear 05/30/18 07:00 Urine pH 5.0 (5.0-8.0) D 05/30/18 07:00 Ur Specific [place] 1.026 (1.010-1.035) 05/30/18 07:00 Urine Protein Negative (NEGATIVE) 05/30/18 07:00 Urine Glucose (UA) Negative (NEGATIVE) 05/30/18 07:00 Urine Ketones Negative (NEGATIVE) 05/30/18 07:00 Urine Blood Negative (NEGATIVE) 05/30/18 07:00 Urine Nitrite Negative (NEGATIVE) 05/30/18 07:00 Urine Bilirubin Negative (NEGATIVE) 05/30/18 07:00 Urine Urobilinogen 0.2 mg/dL (0.2-1.0) 05/30/18 07:00 Ur Leukocyte Esterase 1+ (NEGATIVE) H 05/30/18 07:00 Urine WBC (Auto) 34 /hpf (0-5) 05/30/18 07:00 Urine RBC (Auto) 2 /hpf (0-4) 05/30/18 07:00 Urine Casts (Auto) 46 /lpf (0-8) 05/30/18 07:00 U Epithel Cells (Auto) 9.0 /HPF (0-5/HPF) 05/30/18 07:00 U Sm Round Cell (Auto) None seen 05/30/18 07:00 Urine Bacteria (Auto) 2.0 /hpf (NEGATIVE) 05/30/18 07:00 RPR Titer Nonreactive (NONREACTIVE) 05/30/18 07:00 lab noted asymptomatic uti - Treatment Hospital Course: Detox Protocol Followed, Detoxed Safely, Responded well, Discharged Condition Good, Rehab Referral Accepted Patient has Accepted a Rehab Referral to: [facility] [place] - Medication Discharge Medications: Ambulatory Orders Escitalopram Oxalate [Lexapro -] 10 mg PO DAILY 05/29/18 Risperidone [Risperdal -] 0.25 mg PO DAILY 05/29/18 - Diagnosis (1) Alcohol dependence with uncomplicated withdrawal Status: Acute (2) Nicotine dependence Status: Acute Qualifiers: Nicotine product type: cigarettes Substance use status: in withdrawal Qualified Code(s): F17.213 - Nicotine dependence, cigarettes, with withdrawal (3) Substance induced mood disorder Status: Suspected (4) Schizophrenia Status: Suspected Qualifiers: Schizophrenia type: unspecified Qualified Code(s): F20.9 - Schizophrenia, unspecified - AMA Did Patient Leave Against Medical Advice: No
== END 2018-06-01 09:05 | disposition home or self-care (01) | DRG 775 ==
LOC: YASAS 18:48 → Y3N 21:32
PROVIDERS: ADMIT Surgery; ATTEND Surgery
PROC: HZ2ZZZZ Detoxification Services for Substance Abuse Treatment (ICD-10-PCS; principal; 2018-05-29)
DX: F10.230 Alcohol dependence with withdrawal, uncomplicated (principal); F12.20 Cannabis dependence, uncomplicated; F17.213 Nicotine dependence, cigarettes, with withdrawal; F20.9 Schizophrenia, unspecified; F19.24 Other psychoactive substance dependence with psychoactive substance-induced mood disorder; F32.9 Major depressive disorder, single episode, unspecified; G47.00 Insomnia, unspecified; R01.1 Cardiac murmur, unspecified; Z91.5 Personal history of self-harm; Z91.19 Patient's noncompliance with other medical treatment and regimen
CPT/HCPCS: 36415; 80053; 81003; 85027; 86593; J2794